=== PATIENT | female | born 1945 | race Caucasian/White ===

== ENCOUNTER 2023-11-07 19:58 | Emergency (ER) | payer MEDICARE ==
[~2023-11-07] VITALS: Ht 154.9 cm; Wt 56.7 kg
[2023-11-07 20:14] VITALS: BP_SYST 131; PULSE 78; RESP 16; TEMP 97.8; O2SAT 97
[2023-11-07] MEDS ORDERED: DICL50TA9 PO (22:44)
[2023-11-07 22:49] VITALS: BP_SYST 118; PULSE 69; RESP 16; TEMP 97.7; O2SAT 96
== END 2023-11-07 22:49 | disposition home or self-care (01) ==
LOC: SED 19:58
DX: M54.16 Radiculopathy, lumbar region (principal); M54.6 Pain in thoracic spine; Z60.2 Problems related to living alone
CPT/HCPCS: 72072; 72100; 99284

== ENCOUNTER 2023-12-21 07:11 | Inpatient (IN) | payer BC, MEDICARE ==
[~2023-12-21] VITALS: Ht 142.2 cm; Wt 60.8 kg
[~2023-12-21 07:11] MED LIST: DICL50TA9 PO
[2023-12-21 07:18] VITALS: BP_SYST 136; PULSE 75; RESP 15; TEMP 97.6; O2SAT 99
[2023-12-21] MEDS ORDERED: iohexoL 350 mgI/mL, 100 ML INFUS..BTL IV ONE (07:52)
[2023-12-21] MEDS: METOCLOPRAMIDE HCL 10 MG/2 ML VIAL IVP ONE (08:40)
[2023-12-21] MEDS: MECLIZINE HCL 25 MG TABLET (ANITVERT) PO ONE (08:40)
[2023-12-21] MEDS: ASPIRIN 325 MG TABLET PO ONE (08:40)
[2023-12-21] MEDS ORDERED: SYN50 PO (08:50)
[2023-12-21] MEDS ORDERED: AMLO5TAB92 PO (08:50)
[2023-12-21 09:00] LABS: BASOPHILS # (AUTO) 0.1 K/uL (0.0-0.2); BASOPHILS % (AUTO) 0.8 % (0.0-2.0); EOSINOPHILS # (AUTO) 0.1 K/uL (0.0-0.4); EOSINOPHILS % (AUTO) 2.2 % (0.0-4.0); HEMATOCRIT 43.5 % (36-48); HEMOGLOBIN 14.6 g/dL (12.0-16.0); LYMPHOCYTES # (AUTO) 1.3 K/uL (1.0-5.5); LYMPHOCYTES % (AUTO) 22.1 % (20.5-51.5); MEAN CORPUSCULAR HEMOGLOBIN 30 pg (27-31); MEAN CORPUSCULAR HGB CONC 34 % (32-36); MEAN CORPUSCULAR VOLUME 90 fL (79.0-98.0); MONOCYTES # (AUTO) 0.7 K/uL (0.0-1.0); NEUTROPHILS # (AUTO) 3.8 K/uL (1.8-7.7); NEUTROPHILS % (AUTO) 63.9 % (40.0-70.0); PLATELET COUNT (AUTO) 246 K/uL (130-430); RED BLOOD CELL COUNT(AUTO) 4.82 MIL/uL (4.2-6.2); RED CELL DISTRIBUTION WIDTH 14.1 % (9.0-15.0)
[2023-12-21 09:22] LABS: ANION GAP 15 (5-15); CALCIUM 9.5 mg/dL (8.4-11.0); CARBON DIOXIDE 23 mmol/L (23-29); CHLORIDE 99 mmol/L (98-107); GLUCOSE 113 mg/dL (74-106); POTASSIUM 3.2 mmol/L (3.5-5.1); SODIUM SERUM 137 mmol/L (136-145); UREA NITROGEN, BLOOD 15 mg/dL (8-21)
[2023-12-21 09:25] LABS: BILIRUBIN,URINE NEGATIVE (NEGATIVE); CLARITY/URINE CLEAR (CLEAR); COLOR,URINE YELLOW (YELLOW); GLUCOSE,URINE NEGATIVE (NEGATIVE); KETONES,URINE NEGATIVE (NEGATIVE); LEUKOCYTE ESTERASE ,URINE 2+ (NEGATIVE); NITRITE, URINE NEGATIVE (NEGATIVE); PROTEIN URINE NEGATIVE (NEGATIVE); UROBILINOGEN,URINE 0.2 (0.2-1.0)
[2023-12-21 09:27] LABS: BLOOD, URINE TRACE (NEGATIVE)
[2023-12-21 09:27] LABS: HEMOGLOBIN A1C 6.1 % (<5.7)
[2023-12-21 09:30] LABS: INR 6.2 (0.8-1.2); PROTHROMBIN TIME 57.9 SECS (9.5-12.5)
[2023-12-21 09:37] LABS: BARBITURATE, URINE NEGATIVE (NEG <=200); BENZODIAZEPINE, URINE NEGATIVE (NEG <=150); CANNABINOID, URINE NEGATIVE (NEG <=50); COCAINE, URINE NEGATIVE (NEG <=150); METHAMPHETAMINES SCREEN,URINE NEGATIVE (NEG <=500); OPIATE, URINE NEGATIVE (NEG <=100); PHENCYCLIDINE SCREEN,URINE NEGATIVE (NEG <=25); UR TRICYCLIC ANTIDEPRESSANTS NEGATIVE (NEG <=300); URINE AMPHETAMINE NEGATIVE (NEG <=500); URINE METHADONE NEGATIVE (NEG <=200); URINE OXYCODONE SCREEN NEGATIVE (NEG <=100)
[2023-12-21 09:39] LABS: BACTERIA,URINE FEW /HPF (None Seen); MUCUS,URINE 1+ /LPF (None Seen); RBC,URINE 0-3 /HPF (0-3)
[2023-12-21 09:43] LABS: CHOLESTEROL 305 mg/dL (<200); HDL CHOLESTEROL 82 mg/dL (>55); TRIGLYCERIDES 93 mg/dL (30-150)
[2023-12-21 10:03] LABS: ALBUMIN 3.8 g/dL (3.4-4.8); BILIRUBIN,DIRECT 0.2 mg/dL (0.0-0.3); TOTAL BILIRUBIN 0.8 mg/dL (0.0-1.0); TOTAL PROTEIN, SERUM 7.6 g/dL (6.4-8.3)
[2023-12-21] MEDS: D5/0.45 NS 1,000 ML IV SCH (10:14)
[2023-12-21] MEDS ORDERED: LEVOTHYROXINE SODIUM 0.05 MG TABLET PO ONE (11:00)
[2023-12-21 12:02] VITALS: BP_SYST 120; PULSE 72; RESP 16; TEMP 98.6
[2023-12-21] MEDS: POTASSIUM CHLORIDE 20 MEQ TABLET.ER PO ONE (13:46)
[2023-12-21] MEDS: amLODIPine BESYLATE 5 MG TABLET PO ONE (13:46)
[2023-12-21 16:06] LABS: PROTHROMBIN TIME 10.3 SECS (9.5-12.5)
[2023-12-21 17:00] VITALS: BP_SYST 105; PULSE 73; RESP 20; TEMP 98.7; O2SAT 96
[2023-12-21 20:23] VITALS: BP_SYST 121; PULSE 73; RESP 18; TEMP 98.3; O2SAT 97
[2023-12-21 20:38] VITALS: O2SAT 97
[2023-12-22 05:26] LABS: BASOPHILS % (AUTO) 0.7 % (0.0-2.0); EOSINOPHILS # (AUTO) 0.2 K/uL (0.0-0.4); EOSINOPHILS % (AUTO) 3.5 % (0.0-4.0); HEMATOCRIT 39.7 % (36-48); HEMOGLOBIN 13.4 g/dL (12.0-16.0); LYMPHOCYTES # (AUTO) 2.2 K/uL (1.0-5.5); LYMPHOCYTES % (AUTO) 39.8 % (20.5-51.5); MEAN CORPUSCULAR HEMOGLOBIN 31 pg (27-31); MEAN CORPUSCULAR HGB CONC 34 % (32-36); MEAN CORPUSCULAR VOLUME 90 fL (79.0-98.0); MONOCYTES # (AUTO) 0.7 K/uL (0.0-1.0); MONOCYTES % (AUTO) 12.7 % (1.7-9.3); NEUTROPHILS # (AUTO) 2.4 K/uL (1.8-7.7); NEUTROPHILS % (AUTO) 43.3 % (40.0-70.0); PLATELET COUNT (AUTO) 230 K/uL (130-430); RED BLOOD CELL COUNT(AUTO) 4.39 MIL/uL (4.2-6.2); RED CELL DISTRIBUTION WIDTH 14.2 % (9.0-15.0); WHITE BLOOD COUNT (AUTO) 5.6 K/uL (4.8-10.8)
[2023-12-22 05:30] LABS: ANION GAP 8 (5-15); CARBON DIOXIDE 27 mmol/L (23-29); CHLORIDE 105 mmol/L (98-107); CREATININE 0.79 mg/dL (0.55-1.30); GLUCOSE 99 mg/dL (74-106); POTASSIUM 3.7 mmol/L (3.5-5.1); SODIUM SERUM 140 mmol/L (136-145); UREA NITROGEN, BLOOD 13 mg/dL (8-21)
[2023-12-22] MEDS: LEVOTHYROXINE SODIUM 0.05 MG TABLET PO SCH (06:01)
[2023-12-22 08:29] VITALS: BP_SYST 124; PULSE 70; RESP 18; TEMP 96.9; O2SAT 96
[2023-12-22] MEDS: amLODIPine BESYLATE 5 MG TABLET PO SCH (08:46)
[2023-12-22] MEDS: acetaZOLAMIDE 250 MG TABLET (DIAMOX) PO SCH (08:46)
[2023-12-22 09:30] VITALS: O2SAT 96
[2023-12-22] MEDS ORDERED: MECL-225 PO (12:07)
[2023-12-22 12:30] VITALS: BP_SYST 130; PULSE 74; RESP 18; TEMP 97.1; O2SAT 98
[2023-12-22 13:42] VITALS: BP_SYST 130; PULSE 74; RESP 20; TEMP 97.1; O2SAT 98
== END 2023-12-22 15:45 | disposition home or self-care (01) | DRG 149 ==
LOC: SED 07:11 → STU 10:00
PROVIDERS: ADMIT Specialist; ATTEND Specialist
DX: H81.10 Benign paroxysmal vertigo, unspecified ear (principal); I10 Essential (primary) hypertension; E03.9 Hypothyroidism, unspecified; Z79.899 Other long term (current) drug therapy
CPT/HCPCS: 36415; 70450; 70496; 70498; 70551; 71045; 80048; 80061; 80076; 80307; 81000; 81001; 81015; 83037; 84443; 84484; 85025; 85610; 85730; 86800; 86886; 86900; 86901; 87086; 93005; 99291; G0378; J2765; J8597; Q9967